=== PATIENT | female | born 1985 | race Caucasian/White ===

== ENCOUNTER 2019-01-30 17:57 | Emergency (ER) | payer SELFPAY ==
[~2019-01-30] VITALS: Ht 154.9 cm; Wt 71.0 kg
[2019-01-30 18:36] VITALS: Ht 154.9 cm; Wt 71.0 kg
--- NOTE | 2019-01-31 02:04 | ERD ---
ER Documentation Chief Complaint Chief Complaint PT SENT HERE FROM CLINIC FOR NO HEART TONES, 10 WEEKS PREG HPI Patient is a 33-year-old female, G2, P1, approximately 10 weeks , who presents to the ER for concerns of needing a pelvic ultrasound. Patient was sent by her provider Christiano Ordoñez as heart tones were not detected on ultrasound. Patient denies any vaginal bleeding. Patient denies fevers, chills, dysuria, urgency, urgency or hematuria. Patient denies any pain. ROS All systems reviewed and are negative except as per history of present illness. Medications Home Meds Active Scripts Acetaminophen* (Tylophen*) 500 Mg Capsule, 1 CAP PO Q6H PRN for PAIN AND OR ELEVATED TEMP, #20 CAP Prov:SANJEEV JONES PA-C 01/31/19 Allergies Allergies: Coded Allergies: No Known Allergy (Unverified , 01/30/19) PMhx/Soc Medical and Surgical Hx: pt denies Medical Hx, pt denies Surgical Hx Hx Alcohol Use: No Hx Substance Use: No Hx Tobacco Use: No Smoking Status: Never smoker FmHx Family History: No diabetes Physical Exam Vitals Vital Signs Date Temp Pulse Resp B/P (MAP) Pulse Ox O2 O2 Flow FiO2 Time Delivery Rate 01/30/19 97.5 73 19 144/83 100 18:36 (103) Physical Exam GENERAL: Well-developed, well-nourished female. Appears in no acute distress. Speaking in full sentences. HEAD: Normocephalic, atraumatic. EYES: Pupils are equally reactive bilaterally. EOMs grossly intact. No conjunctival erythema. ENT: Moist mucous membranes. No uvula deviation. No kissing tonsils. NECK: Supple. No meningismus. Normal range of motion of the neck. LUNG: Clear to auscultation bilaterally. No rhonchi, wheezing, rales or coarse breath sounds. HEART: Regular rate and rhythm. No murmurs, rubs or gallops. ABDOMEN: Soft, nontender, and nondistended. Positive bowel sounds in all four quadrants. No rebound tenderness, no guarding. (-) McBurney's point tenderness. No CVA tenderness. EXTREMITIES: Equal pulses bilaterally. No peripheral clubbing, cyanosis or edema. No unilateral leg swelling. NEUROLOGIC: Alert and oriented. Moving all four extremities without any difficulty. Normal speech. Steady gait. SKIN: Normal color. Warm and dry. No rashes or lesions. Result Diagram: 01/30/19 4943 Results 24 hrs Laboratory Tests Test 01/30/19 23:13 White Blood Count 12.4 10^3/ul Red Blood Count 4.80 10^6/ul Hemoglobin 13.6 g/dl Hematocrit 40.8 % Mean Corpuscular Volume 85.0 fl Mean Corpuscular Hemoglobin 28.3 pg Mean Corpuscular Hemoglobin Concent 33.3 g/dl Red Cell Distribution Width 12.5 % Platelet Count 298 10^3/UL Mean Platelet Volume 10.2 fl Immature Granulocytes % 0.400 % Neutrophils % 63.6 % Lymphocytes % 25.9 % Monocytes % 5.9 % Eosinophils % 3.9 % Basophils % 0.3 % Nucleated Red Blood Cells % 0.0 /100WBC Immature Granulocytes # 0.050 10^3/ul Neutrophils # 7.9 10^3/ul Lymphocytes # 3.2 10^3/ul Monocytes # 0.7 10^3/ul Eosinophils # 0.5 10^3/ul Basophils # 0.0 10^3/ul Nucleated Red Blood Cells # 0.0 10^3/ul Urine Color YELLOW Urine Clarity SLIGHTLY CLOUDY Urine pH 6.0 Urine Specific Randolph 1.017 Urine Ketones 1+ mg/dL Urine Nitrite NEGATIVE mg/dL Urine Bilirubin NEGATIVE mg/dL Urine Urobilinogen 1+ mg/dL Urine Leukocyte Esterase NEGATIVE Madid/ul Urine Microscopic RBC 0 /HPF Urine Microscopic WBC 2 /HPF Urine Squamous Epithelial Cells FEW /HPF Urine Bacteria FEW /HPF Urine Hemoglobin NEGATIVE mg/dL Urine Glucose NEGATIVE mg/dL Urine Total Protein NEGATIVE mg/dl Beta HCG, Quantitative 58527.0 mIU/ml Procedures/MDM ED COURSE: The patient was stable throughout ED course. I kept the patient and/or family informed of laboratory and diagnostic imaging results throughout the ED course. DIAGNOSTIC IMAGING: Read by radiologist. DIAGNOSTIC IMAGING REPORT Patient: KAMILA VINCENT : 1985 Age: 33 Sex: F MR #: [id number] DOS: 01/31/19 3085 Ordering MD: SANJEEV JONES PA-C Location: [facility]TE Room/Bed: PROCEDURE: US Pelvis. CLINICAL INDICATION: Abdominal pain. Gestational age by last menstrual period measures 10 weeks 6 days. TECHNIQUE: Multiple sonographic images of the pelvis were obtained utilizing a transabdominal and endovaginal technique. The images were reviewed on a PACS workstation. COMPARISON: None FINDINGS: There is a single intrauterine gestational . No heart tones are detected on the current examination. The yolk sac is not clearly identified. There is a pole with a crown-rump length of 2.1 cm. The gestational sac measures 2.9 cm. There is an estimated gestational age of 8 weeks 3 days. No suspicious adnexal lesions are seen. IMPRESSION: Single intrauterine gestational , as described above. No heart tones are detected on the current examination. RPTAT: HAP Admit-r Jerman, Physician Date Time Electronically viewed and signed by Dahlia Stoll, Physician on 01/31/2019 02:08 AP/ CC: SANJEEV JONES PA-C [phone] MEDICAL DECISION MAKING: This is a 33-year-old female, G2, P1, approximately 10 weeks presents to the ER for concerns of no heart tones on ultrasound performed earlier today. Patient denies any vaginal bleeding vital signs were reviewed. Patient was afebrile. Patient was hemodynamically stable. Urine test was positive. CBC showed WBC count of 12.4. Likely due to state. Hemoglobin hematocrit within normal limits [place] [address]. Patient's blood type is O+ B+. No indication for RhoGam at this time. UA negative for acute infection. Pelvic US showed Single intrauterine gestational , as described above. No heart tones are detected on the current examination. At this time, the patient's presentation is consistent with demise. Patient was advised she will need to follow-up with her [employer] for D&C on an outpatient basis. Patient advised to return to the ER for any new or worsening symptoms including vaginal bleeding. Low suspicion for incomplete , missed , septic , UTI, pyelonephritis, severe anemia. Patient was nontoxic, [id number] prior to discharge. PRESCRIPTIONS: Tylenol DISCHARGE: At this time, patient is stable for discharge and outpatient management. I had a conversation at length with the patient about the concerns of vaginal bleeding during the 1st trimester of . Patient and/or family understands that her vaginal bleeding can be a normal finding or a sign of miscarriage. I have instructed the patient to follow-up with her OBGYN in 1-2 days for further monitoring including a repeat b-HCG level. I have instructed the patient to promptly return to the ER at any time for any new or worsening symptoms including increased pain, nausea, vomiting, continued bleeding, weakness, syncope or fever. The patient and/or family expressed understanding of and agreement with this plan. All questions were answered. Home care instructions were provided. Disclaimer: Inadvertent spelling and grammatical errors are likely due to EHR/dictation software use and do not reflect on the overall quality of patient care. Also, please note that the electronic time recorded on this note does not necessarily reflect the actual time of the patient encounter. Departure Diagnosis: Primary Impression: Pelvic pain complicating Trimester: unspecified trimester Qualified Codes: O26.899 - Other specified related conditions, unspecified trimester; R10.2 - Pelvic and perineal pain Additional Impression: demise Condition: Fair Patient Instructions: Understanding Miscarriage: During a Miscarriage Referrals: [facility] YOU HAVE RECEIVED A MEDICAL SCREENING EXAM AND THE RESULTS INDICATE THAT YOU DO NOT HAVE A CONDITION THAT REQUIRES URGENT TREATMENT IN THE EMERGENCY DEPARTMENT. FURTHER EVALUATION AND TREATMENT OF YOUR CONDITION CAN WAIT UNTIL YOU ARE SEEN IN YOUR DOCTORS OFFICE WITHIN THE NEXT 1-2 DAYS. IT IS YOUR RESPONSIBILITY TO MAKE AN APPOINTMENT FOR FOLOW-UP CARE. IF YOU HAVE A PRIMARY DOCTOR --you should call your primary doctor and schedule an appointment IF YOU DO NOT HAVE A PRIMARY DOCTOR YOU CAN CALL OUR PHYSICIAN REFERRAL HOTLINE AT IF YOU CAN NOT AFFORD TO SEE A PHYSICIAN YOU CAN CHOSE FROM THE FOLLOWING [facility] CLINICS [facility] [address] [facility] [address] [facility] [address] [facility] [address] [facility] [address] [facility]. [facility] [address] [place] [facility]. [facility] YOU HAVE RECEIVED A MEDICAL SCREENING EXAM AND THE RESULTS INDICATE THAT YOU DO NOT HAVE A CONDITION THAT REQUIRES URGENT TREATMENT IN THE EMERGENCY DEPARTMENT. FURTHER EVALUATION AND TREATMENT OF YOUR CONDITION CAN WAIT UNTIL YOU ARE SEEN IN YOUR DOCTORS OFFICE WITHIN THE NEXT 1-2 DAYS. IT IS YOUR RESPONSIBILITY TO MAKE AN APPOINTMENT FOR FOLOW- CARE. IF YOU HAVE A PRIMARY DOCTOR --you should call your primary doctor and schedule and appointment IF YOU DO NOT HAVE A PRIMARY DOCTOR YOU CAN CALL OUR PHYSICIAN REFERRAL HOTLINE AT . IF YOU CAN NOT AFFORD TO SEE A PHYSICIAN YOU CAN CHOSE FROM THE FOLLOWING [facility] INSTITUTIONS: [facility] [address] [place] [address] [facility] [address] [place] [address] [facility] [address] [place] [address] [employer] [address] [facility] [address] [place], [place] [id number] OFFICE FAX [facility] [address] [place], [place] [id number] DR[address] HOWARDFORMERLY [facility] [address] [place] [address] [place] [address] [address] [facility] [address] [address] [place] [id number] [facility] [address] [place] [address] [facility] [id number] - [place]ASP[place] [address], [place] [id number] [address] DUNLAP, DIANA [address] [facility] [address], [place] [phone] DR ZAMARRIPA, FARID [address] [place] [address] Additional Instructions: Llame al doctor MAANA y anthony cielo TANNER PARA DENTRO DE 1-2 BURRELL.Dgale a la secretaria que nosotros le instruimos hacer esta tanner.Avise o llame si reeves condicin se empeora antes de la tanner. Regresa aqui si peor o no mejor. SANJEEV JONES PA-C Jan 31, 2019 02:04
[2019-01-31] MEDS ORDERED: ACET500C5 PO (02:11)
[2019-01-31 02:52] VITALS: BP 135/93; PULSE 82; RESP 19
== END 2019-01-31 02:53 | disposition home or self-care (01) ==
LOC: FTE 17:57
DX: O02.1 Missed abortion (principal)
CPT/HCPCS: 36415; 76801; 81001; 81003; 84702; 85025; 86900; 86901